=== PATIENT | female | born 1950 | race Caucasian/White ===

== ENCOUNTER 2017-08-04 11:21 | Outpatient (CLI) | payer OTHER | END 2017-08-04 11:22 | disposition home or self-care (01) | LOC: BICRAD 11:21 | PROVIDERS: ATTEND Specialist | DX: M19.072 Primary osteoarthritis, left ankle and foot (principal) ==

== ENCOUNTER 2017-12-22 16:16 | Outpatient (CLI) | payer OTHER | END 2017-12-22 16:17 | disposition home or self-care (01) | LOC: BICMAMMO 16:16 | PROVIDERS: ATTEND Specialist | DX: Z12.31 Encounter for screening mammogram for malignant neoplasm of breast (principal); Z80.3 Family history of malignant neoplasm of breast | CPT/HCPCS: 77063; 77067 ==

== ENCOUNTER 2018-01-18 11:07 | Outpatient (CLI) | payer OTHER ==
--- NOTE | 2018-01-18 14:19 | BD ---
BONE DENSITOMETRY USING DEXA: HISTORY: Postmenopausal screening for osteoporosis. LUMBAR SPINE BMD (g/cm2) T-SCORE Z-SCORE L1 0.816 -1.6 0.1 L2 0.845 -1.7 0.2 L3 0.816 -2.4 -0.5 L4 0.909 -1.4 0.6 TOTAL 0.849 -1.8 0.0 NECK 0.663 -1.7 -0.1 TOTAL 0.820 -1.0 0.3 The 10-year fracture risk for a major osteoporotic fracture is 9.3% and for a hip fracture 1.1%. IMPRESSION: Osteopenia. POS: [place]
== END 2018-01-18 11:08 | disposition home or self-care (01) ==
LOC: BICMAMMO 11:07
PROVIDERS: ATTEND Specialist
DX: Z13.820 Encounter for screening for osteoporosis (principal); M85.88 Other specified disorders of bone density and structure, other site
CPT/HCPCS: 77080

== ENCOUNTER 2018-12-28 16:26 | Outpatient (CLI) | payer OTHER ==
--- NOTE | 2018-12-28 17:06 | MMO ---
Bilateral MAMMO Bilat Screen [facility]. CLINICAL HISTORY: Patient is 68 years old and is seen for screening. The patient has the following family history of breast cancer: mother, at age 60. The patient has no personal history of cancer. The patient has a history of right Stereotatic Biopsy in 12/30/00 - benign. VIEWS: The views performed were: bilateral craniocaudal with tomosynthesis and bilateral mediolateral oblique with tomosynthesis. FILMS COMPARED: The present examination has been compared to prior imaging studies performed at [facility] on 11/29/2014, 11/28/2015, 12/31/2016 and 12/22/2017. This study has been interpreted with the assistance of computer-aided detection. MAMMOGRAM FINDINGS: There are scattered fibroglandular densities. There is a stable nodule with associated biopsy clip seen in the right breast. There are no suspicious masses, calcifications or areas of architectural distortion. There are no suspicious masses, suspicious calcifications, or new areas of architectural distortion. IMPRESSION: THERE IS NO MAMMOGRAPHIC EVIDENCE OF MALIGNANCY. A ROUTINE FOLLOW-UP MAMMOGRAM IN 1 YEAR IS RECOMMENDED. THE RESULTS OF THIS EXAM WERE SENT TO THE PATIENT. ACR BI-RADS Category 2 - Benign finding MAMMOGRAPHY NOTE: 1. A negative mammogram report should not delay a biopsy if a dominant of clinically suspicious mass is present. 2. Approximately 10% to 15% of breast cancers are not detected by mammography. 3. Adenosis and dense breasts may obscure an underlying neoplasm. Reported by: ZULMA MATIAS MD Electonically Signed: [id number]
== END 2018-12-28 16:27 | disposition home or self-care (01) ==
LOC: BICMAMMO 16:26
PROVIDERS: ATTEND Specialist
DX: Z12.31 Encounter for screening mammogram for malignant neoplasm of breast (principal); Z80.3 Family history of malignant neoplasm of breast
CPT/HCPCS: 77063; 77067

== ENCOUNTER 2020-01-06 15:41 | Outpatient (CLI) | payer OTHER ==
--- NOTE | 2020-01-06 16:08 | MMO ---
Bilateral MAMMO Bilat Screen [facility]. CLINICAL HISTORY: Patient is 69 years old and is seen for screening. The patient has the following family history of breast cancer: mother, at age 60. The patient has no personal history of cancer. The patient has a history of right Stereotatic Biopsy in 12/30/00 - benign. VIEWS: The views performed were: bilateral craniocaudal with tomosynthesis and bilateral mediolateral oblique with tomosynthesis. FILMS COMPARED: The present examination has been compared to prior imaging studies performed at [facility] on 11/28/2015, 12/31/2016, 12/22/2017 and 12/28/2018. This study has been interpreted with the assistance of computer-aided detection. MAMMOGRAM FINDINGS: There are scattered fibroglandular densities. Finding 1: There are stable benign appearing calcifications seen in both breasts. Finding 2: There is a stable nodule with associated biopsy clip seen in the right breast. There are no suspicious masses, suspicious calcifications, or new areas of architectural distortion. IMPRESSION: THERE IS NO MAMMOGRAPHIC EVIDENCE OF MALIGNANCY. A ROUTINE FOLLOW-UP MAMMOGRAM IN 1 YEAR IS RECOMMENDED. THE RESULTS OF THIS EXAM WERE SENT TO THE PATIENT. ACR BI-RADS Category 2 - Benign finding MAMMOGRAPHY NOTE: 1. A negative mammogram report should not delay a biopsy if a dominant of clinically suspicious mass is present. 2. Approximately 10% to 15% of breast cancers are not detected by mammography. 3. Adenosis and dense breasts may obscure an underlying neoplasm. Reported by: KEEGAN MCGUIRE MD Electonically Signed: [id number]
== END 2020-01-06 15:42 | disposition home or self-care (01) ==
LOC: BICMAMMO 15:41
PROVIDERS: ATTEND Specialist
DX: Z12.31 Encounter for screening mammogram for malignant neoplasm of breast (principal); Z80.3 Family history of malignant neoplasm of breast; Z91.89 Other specified personal risk factors, not elsewhere classified
CPT/HCPCS: 77063; 77067

== ENCOUNTER 2021-01-30 15:42 | Outpatient (CLI) | payer OTHER | END 2021-01-30 15:43 | disposition home or self-care (01) | LOC: BICMAMMO 15:42 | PROVIDERS: ATTEND Specialist | DX: Z12.31 Encounter for screening mammogram for malignant neoplasm of breast (principal); Z80.3 Family history of malignant neoplasm of breast; Z91.89 Other specified personal risk factors, not elsewhere classified | CPT/HCPCS: 77063; 77067 ==

== ENCOUNTER 2022-02-25 12:10 | Outpatient (CLI) | payer OTHER | END 2022-02-25 12:11 | disposition home or self-care (01) | LOC: BICMAMMO 12:10 | PROVIDERS: ATTEND Specialist | DX: Z12.31 Encounter for screening mammogram for malignant neoplasm of breast (principal); Z80.3 Family history of malignant neoplasm of breast; Z91.89 Other specified personal risk factors, not elsewhere classified | CPT/HCPCS: 77063; 77067 ==

== ENCOUNTER 2022-03-12 08:13 | Outpatient (CLI) | payer OTHER | END 2022-03-12 08:14 | disposition home or self-care (01) | LOC: BICRAD 08:13 | PROVIDERS: ATTEND Specialist | DX: M54.50 Low back pain, unspecified (principal); M47.816 Spondylosis without myelopathy or radiculopathy, lumbar region | CPT/HCPCS: 72100 ==

== ENCOUNTER 2022-09-05 08:02 | Outpatient (CLI) | payer OTHER | END 2022-09-05 08:03 | disposition home or self-care (01) | LOC: ULT 08:02 | PROVIDERS: ATTEND Nurse Practitioner Family | DX: R10.13 Epigastric pain (principal); N28.1 Cyst of kidney, acquired | CPT/HCPCS: 76700 ==

== ENCOUNTER 2023-04-20 09:02 | Outpatient (CLI) | payer OTHER | END 2023-04-20 09:03 | disposition home or self-care (01) | LOC: BICMAMMO 09:02 | PROVIDERS: ATTEND Specialist | DX: Z12.31 Encounter for screening mammogram for malignant neoplasm of breast (principal); Z80.3 Family history of malignant neoplasm of breast; Z91.89 Other specified personal risk factors, not elsewhere classified | CPT/HCPCS: 77063; 77067 ==